=== PATIENT | female | born 1990 | race Caucasian/White ===

== ENCOUNTER 2017-02-28 21:30 | Emergency (ER) | payer BC ==
[2017-02-28] MEDS ORDERED: Ondansetron ODT TAB* 4 MG PO ONE ×2 (21:41→22:49)
[2017-02-28 21:47] VITALS: BP 152/79
[2017-02-28] MEDS ORDERED: NS 0.9% 1000 ML* 1,000 ML IV ONE (21:52)
[2017-02-28] MEDS ORDERED: Ondansetron INJ* 2 MG/ML VIAL IV ONE (22:01)
--- NOTE | 2017-02-28 22:54 | UC ---
Rob Griffiths Benjamin, scribed for Jeyson Galvez MD on 02/28/17 at 2146 . General HPI - HPI Summary HPI Summary: 26yo female c/o N/V/D since this morning. Pt states that she is queasy, unable to keep anything down. Pt also reports runny nose and sore throat due to vomiting. Also possible fever. Pt was diaphoretic earlier today. Pt has 2 episodes of diarrhea today. Denies any dysuria. PMHx include ovarian cyst removal, bilateral. - History of Current Complaint Chief Complaint: UCGeneralIllness Stated Complaint: VOMITING,FEVER Time Seen by Provider: 02/28/17 21:37 Hx Obtained From: Patient Hx Last Menstrual Period: 02/23/17 Onset/Duration: Sudden Onset, Lasting Hours - since this morning, Still Present Timing: Constant Onset Severity: Moderate Current Severity: Moderate Pain Intensity: 0 Pain Location at: None Pain Radiates to: None Associated Signs & Symptoms: Positive: Diarrhea, Diaphoresis, Fever, Nausea, Vomiting - Allergy/Home Medications Allergies/Adverse Reactions: Allergies Allergy/AdvReac Type Severity Reaction Status Date / Time Amoxicillin Allergy Severe Rash Verified 02/28/17 21:32 PMH/Surg Hx/FS Hx/Imm Hx Previously Healthy: No - ovarian cysts GI/ History: Other Other GI/ History: Ovarian cysts - Surgical History Surgical History: Yes Surgery Procedure, Year, and Place: [place] [facility] [place] - Family History Known Family History: Positive: Hypertension - Social History Occupation: Employed Part-time Lives: With Family Alcohol Use: Rare Alcohol Amount: 1-2 drinks a week Substance Use Type: None Smoking Status (MU): Never Smoked Tobacco - Immunization History Most Recent Influenza Vaccination: never Most Recent Tetanus Shot: 2013 Most Recent Pneumonia Vaccination: never Review of Systems Constitutional: Fever Skin: Negative Eyes: Negative ENT: Sore Throat, Nasal Discharge Respiratory: Negative Cardiovascular: Negative Gastrointestinal: Vomiting, Diarrhea, Nausea Genitourinary: Negative Motor: Negative Neurovascular: Negative Musculoskeletal: Negative Neurological: Negative Psychological: Negative All Other Systems Reviewed And Are Negative: Yes Physical Exam Triage Information Reviewed: Yes Appearance: No Pain Distress, Well-Nourished, Ill-Appearing - moderately ill appearing, with dry heaves Vital Signs: Initial Vital Signs Temp 98 F 02/28/17 21:34 Pulse 50 02/28/17 21:34 Resp 20 09/08/17 21:34 Pulse Ox 100 02/28/17 21:34 Vital Signs Reviewed: Yes Eyes: Positive: Conjunctiva Clear ENT: Positive: Normal ENT inspection, Hearing grossly normal Neck exam: Normal Neck: Positive: Supple, Nontender Respiratory: Positive: Lungs clear, Normal breath sounds Cardiovascular: Positive: RRR, No Murmur Abdomen Description: Positive: Nontender, No Organomegaly, Soft, Other: - no tympany on percussion Bowel Sounds: Positive: Hypoactive Musculoskeletal: Positive: Strength Intact, ROM Intact Neurological: Positive: Alert, Muscle Tone Normal Psychological: Positive: Age Appropriate Behavior Skin Exam: Normal Skin: Negative: rashes Course/Dx - Course Course Of Treatment: Reviewed pts medication and allergy lists. High blood pressure noted. PATIENT GIVEN ZOFRAN 4MG ODT PO X 1 THEN,. NS 1 L IV PLUS ZOFRAN 4MG IV. PATIENT IMPROVED IN CLINIC. DISCUSSED FURTHER TREATMENT IN THE EMERGENCY DEPARTMENT VERSES HOME WITH ZOFRAN ODT. PATIENT PREFERS TO GO HOME; SHE WILL GO TO THE EMERGENCY DEPARTMENT FOR ANY WORSENING OF HER CONDITION OR CONCERNS. - Differential Dx - Multi-Symptom Provider Diagnoses: VOMITING AND DIARRHEA, DEHYDRATION Discharge - Discharge Plan Condition: Stable Disposition: HOME Patient Education Materials: Dehydration (ED), Acute Nausea and Vomiting (ED) Referrals: Julio Ceasr Almaraz MD [Primary Care Provider] - Additional Instructions: FOLLOW UP WITH YOUR DOCTOR. GO TO THE EMERGENCY DEPARTMENT FOR ANY WORSENING OF YOUR CONDITION; PAIN, FEVER , DEHYDRATION OR QUESTIONS OR CONCERNS. The documentation as recorded by the Rob taylor Benjamin accurately reflects the service I personally performed and the decisions made by me, Jeyson Galvez MD.
== END 2017-02-28 22:59 | disposition home or self-care (01) ==
LOC: UCEAST 21:30
DX: R11.2 Nausea with vomiting, unspecified (principal); R19.7 Diarrhea, unspecified; E86.0 Dehydration; R61 Generalized hyperhidrosis; Z88.0 Allergy status to penicillin
CPT/HCPCS: 96361; 96374; 99212; A9270-GY; G0463; J2405

== ENCOUNTER 2017-03-02 13:46 | Emergency (ER) | payer BC ==
[2017-03-02 13:58] VITALS: BP 153/86
--- NOTE | 2017-03-02 14:56 | UC ---
General HPI - HPI Summary HPI Summary: This pt is a 26 y/o female presenting to [facility] c/o nausea and vomiting. Pt reports she was seen here at Urgent Care 2 days ago, on Friday, for nausea and vomiting. She states she was treated with IV fluids and zofran. Pt felt better yesterday earlier in the day. She began vomiting again and is unable to tolerate PO fluids. - History of Current Complaint Chief Complaint: UCGeneralIllness Stated Complaint: VOMITTING Time Seen by Provider: 03/02/17 14:14 Hx Obtained From: Patient, Family/Technician [employer] Hx Last Menstrual Period: Currently menstruating Onset/Duration: Gradual Onset, Lasting Days, Still Present Timing: Intermittent Episodes Lasting: Onset Severity: Moderate Current Severity: Moderate Associated Signs & Symptoms: Positive: Abdominal Pain - RUQ LUQ, Dizziness, Nausea, Vomiting. Negative: Confusion, Cough, Chest Pain, Diarrhea, Dysuria, Fever, Hematemesis, Hemoptysis, Immunocompromised - Allergy/Home Medications Allergies/Adverse Reactions: Allergies Allergy/AdvReac Type Severity Reaction Status Date / Time Amoxicillin Allergy Severe Rash Verified 02/28/17 21:32 Home Medications: Home Medications Ondansetron ODT TAB* [Zofran 4 MG Odt TAB*] 1 tab SL PRN 03/02/17 [History] PMH/Surg Hx/FS Hx/Imm Hx Previously Healthy: Yes - Surgical History Surgical History: Yes Surgery Procedure, Year, and Place: ovarian cysts removed bilat. [facility] - Family History Known Family History: Positive: Hypertension - Social History Occupation: Employed Full-time Lives: With Family Alcohol Use: Occasionally Alcohol Amount: 1-2 drinks a week Substance Use Type: None Smoking Status (MU): Never Smoked Tobacco Household Exposure Type: Cigarettes - Immunization History Most Recent Influenza Vaccination: never Most Recent Tetanus Shot: 2013 Most Recent Pneumonia Vaccination: never Review of Systems Constitutional: Negative Skin: Negative Eyes: Negative ENT: Negative Respiratory: Negative Cardiovascular: Negative Gastrointestinal: Abdominal Pain, Vomiting, Nausea Genitourinary: Negative Motor: Negative Neurovascular: Negative Musculoskeletal: Negative Neurological: Negative Psychological: Negative Is Patient Immunocompromised?: No All Other Systems Reviewed And Are Negative: Yes Physical Exam Triage Information Reviewed: Yes Appearance: No Pain Distress, Well-Nourished, Ill-Appearing - MILDLY Vital Signs: Initial Vital Signs Temp 97.0 F 03/02/17 13:51 Pulse 64 09/10/17 13:51 Resp 18 03/02/17 13:51 BP 153/86 03/02/17 13:51 Pulse Ox 100 03/02/17 13:51 Vital Signs Reviewed: Yes Eye Exam: Normal ENT Exam: Normal ENT: Positive: Normal ENT inspection, Hearing grossly normal, Pharynx normal, TMs normal Dental Exam: Normal Neck exam: Normal Neck: Positive: Supple, Nontender Respiratory Exam: Normal Respiratory: Positive: Chest non-tender, Lungs clear, Normal breath sounds, No respiratory distress, No accessory muscle use Cardiovascular Exam: Normal Cardiovascular: Positive: RRR, No Murmur, Pulses Normal Abdomen Description: Positive: No Organomegaly, Soft. Negative: Nontender - RUQ , LUQ, CVA Tenderness (R), CVA Tenderness (L), McBurney's Point Tenderness Musculoskeletal Exam: Normal Musculoskeletal: Positive: Strength Intact, ROM Intact Neurological Exam: Normal Psychological Exam: Normal Psychological: Positive: Normal Response To Family Skin Exam: Normal Course/Dx - Course Course Of Treatment: [facility] REFUSED THE OFFER OF AMBULANCE TRANSPORT AND ELECTED TO GO TO THE EMERGENCY DEPARTMENT BY PRIVATE CAR. - Differential Dx - Multi-Symptom Differential Diagnoses: Metabolic Abnormality, Sepsis, Urinary Tract Infection Provider Diagnoses: RUQ, LUQ ABDOMINAL PAIN; NAUSEA, AND VOMITING - Physician Notifications Instructed by Provider To: MD Will See In ED Discharge - Discharge Plan Condition: Stable Disposition: TRANS HIGHER LVL OF CARE FAC Patient Education Materials: Acute Nausea and Vomiting (ED), Acute Abdominal Pain (ED) Referrals: Julio Cesar Almaraz MD [Primary Care Provider] - Additional Instructions: YOU HAVE REFUSED THE OFFER OF AMBULANCE TRANSPORT AND HAVE ELECTED TO GO TO THE EMERGENCY DEPARTMENT BY PRIVATE CAR. YOU ARE ADVISED TO PROCEED SAFELY, BUT DIRECTLY TO THE EMERGENCY DEPARTMENT FOR CONTINUED EVALUATION.
== END 2017-03-02 14:50 | disposition short-term general hospital (02) ==
LOC: UCEAST 13:46
DX: R10.11 Right upper quadrant pain (principal); R10.12 Left upper quadrant pain; R11.2 Nausea with vomiting, unspecified; Z32.02 Encounter for pregnancy test, result negative; Z88.0 Allergy status to penicillin; Z77.22 Contact with and (suspected) exposure to environmental tobacco smoke (acute) (chronic)
CPT/HCPCS: 81003; 84702; 99212; G0463

== ENCOUNTER 2017-03-02 15:12 | Emergency (ER) | payer BC ==
[2017-03-02] MEDS ORDERED: Metoclopramide IV* 5 MG/ML 2 ML VIAL IV SLOW PU ONE (16:41)
[2017-03-02] MEDS ORDERED: diPHENhydraMINE IV* 50 MG/ML 1 ml VIAL (BENADRYL) IV ONE (16:41)
[2017-03-02] MEDS: NS 0.9% 1000 ML* 2,000 ML IV ONE (17:00)
[2017-03-02 17:13] LABS: Hematocrit 46 % (35-47); Hemoglobin 15.6 g/dl (12.0-16.0); Mean Corpuscular HGB Conc 34 g/dl (31-36); Mean Corpuscular Hemoglobin 33 pg (27-31); Mean Corpuscular Volume 96 fL (80-97); Mean Platelet Volume 9 um3 (7.4-10.4); Red Blood Count 4.75 10^6/ul (4.0-5.4); Red Cell Distribution Width 13 % (10.5-15); White Blood Count 8.7 10^3/ul (3.5-10.8)
[2017-03-02 17:27] LABS: ALT 18 U/L (7-52); AST 15 U/L (13-39); Albumin 4.9 g/dL (3.2-5.2); Alkaline Phosphatase 77 U/L (34-104); Anion Gap 13 mmol/L (2-11); BUN/Creatinine Ratio 15.4 (8-20); Blood Urea Nitrogen 14 mg/dL (6-24); C Reactive Protein 4.14 mg/L (< 5.00); CO2 Carbon Dioxide 24 mmol/L (22-32); Calcium 10.2 mg/dL (8.6-10.3); Chloride 101 mmol/L (101-111); EGFR African American 97.7 (>60); Globulin 3.6 g/dL (2-4); Glucose 79 mg/dL (70-100); Lipase 21 U/L (11.0-82.0); Potassium 2.9 mmol/L (3.5-5.0); Sodium 138 mmol/L (133-145); Total Protein 8.5 g/dL (6.4-8.9)
[2017-03-02] MEDS ORDERED: Ondansetron INJ* 2 MG/ML VIAL ONE (18:30)
[2017-03-02] MEDS ORDERED: Ondansetron INJ* 2 MG/ML VIAL IV ONE (18:32)
[2017-03-02] MEDS ORDERED: LORazepam INJ* 2 MG/ML 1 ML VIAL IV PUSH ONE (19:02)
[2017-03-02] MEDS ORDERED: PROCHLORPERAZINE INJ 5 MG/ML 2 ML VIAL IV ONE (19:02)
[2017-03-02 19:05] LABS: Urine Bilirubin Negative (Negative); Urine Glucose Negative (Negative); Urine Nitrite Negative (Negative)
[2017-03-02 19:16] LABS: Urine Bacteria Absent (Absent)
[2017-03-02] MEDS ORDERED: Prochlorperazine TAB* 10 MG PO ONE (21:32)
[2017-03-02] MEDS ORDERED: Ondansetron TAB* 4 MG PO ONE (21:32)
[2017-03-02 21:54] VITALS: BP 128/79
--- NOTE | 2017-03-06 08:48 | ED ---
Markus Griffiths Thomas, scribed for Heraclio Wall MD on 03/02/17 at 1813 . GI/ HPI - HPI Summary HPI Summary: The pt is a 26 y/o F referred from [facility] [place] c/o vomiting that began three days ago. She has treated the vomiting with Zofran CHUTE WORKER (1 tablet as directed), but this has not alleviated her vomiting. Pt additionally c/o dizziness, lightheadedness , diarrhea (only two days ago and none yesterday or today), and sweats. Pt denies fever, dysuria, frequency, and hematuria. Her daily medications are Loestrin, Omeprazole, and Metformin. PMHx: PCOS, HTN. PSHx: bilateral ovarian cystectomy. SHx: no smoking, occasional drinking, no illicit drugs. FHx: HTN. She is currently menstruating. Her boyfriend is in the room - History of Current Complaint Chief Complaint: EDNauseaVomitDiarrh Time Seen by Provider: 03/02/17 16:40 Stated Complaint: VOMITING/3DAYS Hx Obtained From: Patient, Family/Asset Protection Professional - boyfriend in room Hx Last Menstrual Period: Currently menstruating Onset/Duration: Started Days Ago - 2 Timing: Constant Pain Intensity: 0 Associated Signs and Symptoms: Positive: Nausea, Vomiting, Diarrhea - two days ago but none since, Lightheadedness, Other: - POS: lightheadedness, sweats; NEG : urinary frequency. Negative: Fever, Hematuria, Dysuria Aggravating Factor(s): Nothing Alleviating Factor(s): Nothing - Allergy/Home Medications Allergies/Adverse Reactions: Allergies Allergy/AdvReac Type Severity Reaction Status Date / Time Amoxicillin Allergy Severe Rash Verified 02/28/17 21:32 PMH/Surg Hx/FS Hx/Imm Hx Previously Healthy: No Endocrine/Hematology History: Denies: Hx Diabetes, Hx Thyroid Disease Cardiovascular History: Reports: Hx Hypertension Respiratory History: Denies: Hx Asthma, Hx Chronic Obstructive Pulmonary Disease (COPD) GI History: Reports: Hx Gastroesophageal Reflux Disease Denies: Hx Ulcer History: Reports: Other Problems/Disorders - bladder infection Neurological History: Reports: Hx Headaches, Hx Migraine - Surgical History Surgery Procedure, Year, and Place: ovarian cysts removed bilat. [facility] [place] Infectious Disease History: No Infectious Disease History: Denies: Hx Clostridium Difficile, Hx Hepatitis, Hx Human Immunodeficiency Virus (HIV), Hx of Known/Suspected MRSA, Hx Shingles, Hx Tuberculosis, Hx Known/ Suspected VRE, Hx Known/Suspected VRSA, History Other Infectious Disease, Traveled Outside the [place] in Last 30 Days - Family History Known Family History: Positive: Hypertension - Social History Alcohol Use: Occasionally Alcohol Amount: 1-2 drinks a week Substance Use Type: Reports: None Smoking Status (MU): Never Smoked Tobacco Review of Systems Negative: Fever, Chills Negative: Erythema - eye Negative: Sore Throat Negative: Chest Pain Negative: Shortness Of Breath, Cough Positive: Vomiting - onset three days ago, Diarrhea - two days ago but none since, Nausea. Negative: Abdominal Pain Negative: dysuria, frequency, hematuria Negative: Myalgia, Edema - leg Negative: Rash Neurological: Other - POS: dizziness, lightheadedness All Other Systems Reviewed And Are Negative: Yes Physical Exam - Summary Physical Exam Summary: Constitutional: Well-developed, Well-nourished, Alert. (-) Distressed Skin: Warm, Dry HENT: Normocephalic; Atraumatic. Dry mucous membranes. Eyes: Conjunctiva normal Neck: Musculoskeletal ROM normal neck. (-) JVD, (-) Stridor, (-) Tracheal deviation Cardio: Rhythm regular, rate normal, Heart sounds normal; Intact distal pulses; The pedal pulses are 2+ and symmetric. Radial pulses are 2+ and symmetric. (-) Murmur Pulmonary/Chest wall: Effort normal. (-) Respiratory distress, (-) Wheezes, (-) Rales Abd: Soft, (-) Tenderness, (-) Distension, (-) Guarding, (-) Rebound Musculoskeletal: (-) Edema Lymph: (-) Cervical adenopathy Neuro: Alert, Oriented x3 Psych: Mood and affect Normal Triage Information Reviewed: Yes Vital Signs On Initial Exam: Initial Vitals Temp Pulse Resp BP Pulse Ox 98.6 F 65 16 134/86 99 03/02/17 15:14 03/02/17 15:14 03/02/17 15:14 03/02/17 15:14 03/02/17 15:14 Vital Signs Reviewed: Yes Diagnostics - Vital Signs Vital Signs Temp Pulse Resp BP Pulse Ox 03/02/17 15:14 98.6 F 65 16 134/86 99 - Laboratory Lab Results: Lab Results 03/02/17 03/02/17 03/02/17 Range/Units 17:04 17:04 17:04 WBC 8.7 (3.5-10.8) 10^3/ul RBC 4.75 (4.0-5.4) 10^6/ul Hgb 15.6 (12.0-16.0) g/dl Hct 46 (35-47) % MCV 96 (80-97) fL MCH 33 H (27-31) pg MCHC 34 (31-36) g/dl RDW 13 (10.5-15) % Plt Count 244 (150-450) 10^3/ul MPV 9 (7.4-10.4) um3 Neut % (Auto) 56.1 (38-83) % Lymph % (Auto) 35.2 (25-47) % [place] % (Auto) 7.7 (1-9) % Eos % (Auto) 0.2 (0-6) % Baso % (Auto) 0.8 (0-2) % Absolute Neuts (auto) 4.9 (1.5-7.7) 10^3/ul Absolute Lymphs (auto) 3.1 (1.0-4.8) 10^3/ul Absolute Monos (auto) 0.7 (0-0.8) 10^3/ul Absolute Eos (auto) 0 (0-0.6) 10^3/ul Absolute Basos (auto) 0.1 (0-0.2) 10^3/ul Absolute Nucleated RBC 0 10^3/ul Nucleated RBC % 0 Sodium 138 (133-145) mmol/L Potassium 2.9 L (3.5-5.0) mmol/L Chloride 101 (101-111) mmol/L Carbon Dioxide 24 (22-32) mmol/L Anion Gap 13 H (2-11) mmol/L BUN 14 (6-24) mg/dL Creatinine 0.91 (0.51-0.95) mg/dL Est GFR ( Amer) 97.7 (>60) Est GFR (Non-Af Amer) 76.0 (>60) BUN/Creatinine Ratio 15.4 (8-20) Glucose 79 (70-100) mg/dL Lactic Acid 1.2 (0.5-2.0) mmol/L Calcium 10.2 (8.6-10.3) mg/dL Total Bilirubin 1.70 H (0.2-1.0) mg/dL AST 15 (13-39) U/L ALT 18 (7-52) U/L Alkaline Phosphatase 77 (34-104) U/L C-Reactive Protein 4.14 (< 5.00) mg/L Total Protein 8.5 (6.4-8.9) g/dL Albumin 4.9 (3.2-5.2) g/dL Globulin 3.6 (2-4) g/dL Albumin/Globulin Ratio 1.4 (1-3) Lipase 21 (11.0-82.0) U/L Beta HCG, Quant < 0.60 mIU/mL Result Diagrams: 03/02/17 17:04 03/02/17 17:04 Lab Statement: Any lab studies that have been ordered have been reviewed, and results considered in the medical decision making process. Re-Evaluation - Re-Evaluation First Eval Re-Evaluation Time: 19:08 Change: Unchanged Comment: At re-evaluation, she is still vomiting. She has no abdominal pain and no tenderness. Second Eval Re-Evaluation Time: 21:34 Change: Improved Comment: She is tolerating PO well. GIGU Course/Dx - Course Assessment/Plan: The pt is a 26 y/o F referred from [facility] [place] c/o vomiting that began three days ago. She has treated the vomiting with Zofran CHUTE WORKER (1 tablet as directed), but this has not alleviated her vomiting. Pt additionally c/o dizziness, lightheadedness, diarrhea (only two days ago and none yesterday or today), and sweats. Pt denies fever, dysuria, frequency, and hematuria. Her daily medications are Loestrin, Omeprazole, and Metformin. PMHx: PCOS, HTN. PSHx : bilateral ovarian cystectomy. SHx: no smoking, occasional drinking, no illicit drugs. FHx: HTN. She is currently menstruating. At re-evaluation at 19: 05, she is still vomiting. She has no abdominal pain and no tenderness. In the ED course the patient was given IV fluids, Benadryl, Ativan, Compazine, and Reglan. Bloodwork shows Potassium 2.9, anion gap 13, and bilirubin 1.7. UA shows 1+ protein, 2+ ketones, and 1+ blood, 1+ RBC. At re-evaluation at 21:23, she is tolerating PO well. She is diagnosed with gastroenteritis. She will be discharged with follow up by her PCP. - Diagnoses Provider Diagnoses: Gastroenteritis Discharge - Discharge Plan Condition: Stable Disposition: HOME Patient Education Materials: Gastroenteritis (ED) Referrals: Julio Cesar Almaraz MD [Primary Care Provider] - 2 Days Additional Instructions: Follow up with your primary care provider in 2-3 days. Return to the emergency department for any new or worsening symptoms. The documentation as recorded by the Markus taylor Thomas accurately reflects the service I personally performed and the decisions made by , Heraclio Wall MD.
== END 2017-03-02 22:01 | disposition home or self-care (01) ==
LOC: ED 15:12
DX: K52.9 Noninfective gastroenteritis and colitis, unspecified (principal); I10 Essential (primary) hypertension; Z88.0 Allergy status to penicillin
CPT/HCPCS: 36415; 80053; 81003; 81015; 83605; 83690; 84702; 85025; 86140; 96360; 96374; 96375; 99285; A9270-GY; J0780; J1200; J2060; J2405; J2765; Q0164

== ENCOUNTER 2018-03-22 10:13 | Emergency (ER) | payer BC ==
[2018-03-22] MEDS ORDERED: Ondansetron INJ* 2 MG/ML VIAL IV ONE (10:41)
[2018-03-22] MEDS ORDERED: NS 0.9% 1000 ML* 1,000 ML IV ONE ×2 (10:48→12:23)
--- NOTE | 2018-03-22 10:49 | UC ---
Nausea/Vomiting/Diarrhea HPI - HPI Summary HPI Summary: Patient states she had a bonfire with friends yesterday evening with food and drinks and around midnight started having vomiting, initially with all gastric contents including the meal she had and thereafter dry heaving. She denies chills or fever. She states for the past 2 days she has had diarrhea. Denies presence of mucus or blood in it. She had a similar episode a year ago which required IVF and parenteral antiemetics. Denies abdominal pain. - History of Current Complaint Stated Complaint: VOMITING Time Seen by Provider: 03/22/18 10:22 Hx Obtained From: Patient, Family/Delivery Technician Hx Last Menstrual Period: Currently menstruating ?: No Onset/Duration: Sudden Onset, Lasting Hours Timing: Intermittent Episodes Lasting: - minutes Severity Initially: Moderate Severity Currently: Moderate Character: Not Applicable Aggravating Factor(s): Food Alleviating Factor(s): Nothing Nausea/Vomiting Presence: Nauseated, Vomiting Vomiting Frequency: Every 15-60 minutes Nausea/Vomiting Duration: 0-12 hours Vomiting Characteristics: Retching Diarrhea Presence: Yes Diarrhea Frequency: Daily Diarrhea Duration: 24-36 hours Diarrhea Characteristics: Watery - Risk Factors Influenza Risk Factors: Negative Surgical Obstruction Risk Factor(s): Negative - Allergies/Home Medications Allergies/Adverse Reactions: Allergies Allergy/AdvReac Type Severity Reaction Status Date / Time amoxicillin Allergy Severe Rash Verified 03/22/18 10:41 Home Medications: Home Medications Famotidine TAB* [Pepcid 20 MG TAB*] 40 mg PO DAILY 03/22/18 [History Confirmed 03/22/18] Norethindrone AC-Eth Estradiol [Loestrin 1.5 1.5-30 mg-Mcg] 1 tab PO 03/22 [History] metFORMIN* [Glucophage 500 MG TAB *] 500 mg PO DAILY 03/22/18 [History Confirmed 03/22/18] PMH/Surg Hx/FS Hx/Imm Hx - Additional Past Medical History Additional PMH: PCOS Previously Healthy: Yes GI/ History: Gastroesophageal Reflux - Surgical History Surgical History: Yes Surgery Procedure, Year, and Place: ovarian cysts removed bil[facility]. [facility] - Family History Known Family History: Positive: Hypertension - Social History Alcohol Use: Occasionally Alcohol Amount: 1-2 drinks a week Substance Use Type: None Smoking Status (MU): Never Smoked Tobacco Household Exposure Type: Cigarettes - Immunization History Most Recent Influenza Vaccination: never Most Recent Tetanus Shot: 2013 Most Recent Pneumonia Vaccination: never Review of Systems Gastrointestinal: Abdominal Pain, Vomiting, Diarrhea All Other Systems Reviewed And Are Negative: Yes Physical Exam Triage Information Reviewed: Yes Appearance: Obese Vital Signs Reviewed: Yes Eyes: Positive: Conjunctiva Clear ENT: Positive: Hearing grossly normal, Pharynx normal, Uvula midline, Other - dry mucus membranes Neck: Positive: Supple, Nontender, No Lymphadenopathy Respiratory: Positive: Chest non-tender, Lungs clear, Normal breath sounds, No respiratory distress Cardiovascular: Positive: RRR, No Murmur, Pulses Normal, Brisk Capillary Refill Abdomen Description: Positive: Nontender, No Organomegaly, Soft Bowel Sounds: Positive: Present Musculoskeletal: Positive: Strength Intact, ROM Intact, No Edema Naus/Vom/Diarrhea Course/Dx - Course Course Of Treatment: 27 yo patient with vomiting since midnight for the past 10.5 hr with dry heaving after republican yesterday, with history of diarrhea for the past 2 days. IVF NS 1000cc started and zofran 4mg were administered IV. Still nauseous with zofran and compazine was given. She did finally respond to Reglan. Patient showed clinical improvement with treatment and was discharged home with instructions to see primary care within a week for a possible GI consult due to recurrent episodes of nausea and vomiting. - Differential Dx/Diagnosis Provider Diagnoses: Nausea and vomiting. Acute gastroenteritis Is Visit Related: No Condition At Discharge: Stable Discharge - Sign-Out/Discharge Documenting (check all that apply): Patient Departure All imaging exams completed and their final reports reviewed: No Studies - Discharge Plan Condition: Stable Disposition: HOME Patient Education Materials: Dehydration (ED), Gastroenteritis (ED), Acute Nausea and Vomiting (ED) Referrals: Julio Cesar Almaraz MD [Primary Care Provider] - - Billing Disposition and Condition Condition: STABLE Disposition: Home
[2018-03-22] MEDS ORDERED: NS 0.9% w/ 20 Meq KCL 1000 ML* 1,000 ML IV SCH (11:00)
[2018-03-22] MEDS ORDERED: PROCHLORPERAZINE INJ 5 MG/ML 2 ML VIAL IV ONE (11:40)
[2018-03-22] MEDS ORDERED: PROCHLORPERAZINE INJ 5 MG/ML 2 ML VIAL ONE (12:54)
[2018-03-22] MEDS ORDERED: Metoclopramide IV* 5 MG/ML 2 ML VIAL IV ONE (12:57)
[2018-03-22 13:50] VITALS: BP 156/99
== END 2018-03-22 13:47 | disposition home or self-care (01) ==
LOC: UCEAST 10:13
DX: K52.9 Noninfective gastroenteritis and colitis, unspecified (principal); R03.0 Elevated blood-pressure reading, without diagnosis of hypertension; K21.9 Gastro-esophageal reflux disease without esophagitis; Z79.3 Long term (current) use of hormonal contraceptives; Z88.0 Allergy status to penicillin
CPT/HCPCS: 96360; 96361; 96374; 96376; 99212; G0463; J0780; J2405; J2765